=== PATIENT | female | born 1990 | race Caucasian/White ===

== ENCOUNTER 2019-12-21 06:04 | Inpatient (IN) | payer OTHER ==
[2019-12-21] MEDS ORDERED: Calcium Carbonate 500 MG Tab.Chew PO PRN (12:16)
[2019-12-21] MEDS ORDERED: Ondansetron 4 MG/2 ML SDV IVPUSH PRN (12:16)
[2019-12-21] MEDS ORDERED: Nalbuphine 10 MG/ML Syringe IVPUSH PRN (12:16)
[2019-12-21] MEDS ORDERED: Sodium Chloride 0.9% 10 ML Syringe FLUSH PRN (12:16)
[2019-12-21] MEDS ORDERED: Oxytocin/Lactated Ringers 10 UNIT/1,000 ML BAG IV SCH (12:30)
[2019-12-21] MEDS: Oxytocin/Lactated Ringers 10 UNIT/1,000 ML BAG IV SCH (12:44)
[2019-12-21] MEDS: Lactated Ringers 1,000 ML IV SCH (12:44)
[2019-12-21] MEDS ORDERED: Measles, Mumps & Rubella Vaccine 0.5 ML SDV SUBCUT ONE (14:21)
[2019-12-21] MEDS ORDERED: fentaNYL 100 MCG/2 ML SDV EPIDUR PRN (15:29)
[2019-12-21] MEDS ORDERED: ePHEDrine 50 MG/ML SDV IVPUSH PRN (15:29)
[2019-12-21] MEDS ORDERED: diphenhydrAMINE 50 MG/ML SDV IVPUSH PRN (15:29)
--- NOTE | 2019-12-21 18:09 | PCM.LDHP ---
L&D History of Present Illness - General Date of Service: 12/21/19 Admit Problem/Dx: Admission Diagnosis/Problem Admission Diagnosis/Problem 12/21/19 17:58 Jessika is a 29-year-old 3 para 1-0-1-1 white female who was admitted for elective induction of labor at 39 and 0/7 weeks gestational age with an JORGITO of 12/28/2019. Source of Information: Patient History Limitations: Reports: No Limitations - History of Present Illness Introduction:: Jessika is a 29-year-old 3 para 1-0-1-1 white female who was admitted for elective induction of labor at 39 and 0/7 weeks gestational age with an JORGITO of 12/28/2019. She has previously a low uterine segment transverse section done for failure to progress. The procedure of trial of labor after section for an attempt at vaginal after section was discussed in detail on at least 3 occasions during the course of the . The procedure, risks, benefits, limitations and inability to guarantee a vaginal area all discussed. Also discussed our preparations that are recommended while in labor in case emergent repeat section would be indicated. She appears understand, wishes to proceed and has signed a consent. [employer] history: 3 para 1-0-1-1. JORGITO is 12/28/2019 as based upon a certain last menstrual period started 03/23/2019 and supported by an ultrasound done at 21 weeks and 0 days. Patient's previous obstetric history includes a menarche at approximately age 12. Cycles monthly. No control at the time of conception. Previous emeses include the followin. Miscarriagefirst trimester01/09/2017 2. Primary section for failure to progress secondary to cephalopelvic disproportion 02/17/2018 at 41 weeks gestational age. Had spinal anesthesia at that time. Delivery was in [place], [place]. course: Patient was initially seen in the 09/21/2019 when she transferred her care because of desire to attempt a trial of labor after section for . And on a regular basis since that time. Her weight gain was from a pregravid weight of 144.6 pounds to a final weight of 171 pounds at her last visit on 12/14/2019. Her fundal height growth is appropriate. Ultrasound performed on 08/17/2019 at 21-0/7 weeks shows normal growth. Cervix was 4 cm long and recommendation was for to be kept at 12/28/2019 by certain last menstrual period. Patient is group B strep negative. T dap was done in [place], [place] on 10/19/2019. She desires an epidural. She plans to breast-feed. Her previous health care and [place], [place]. Hepatitis B panel vaccinations were done in 2002. Meningococcal immunization was done in 2006. Laboratory testing in shows her blood to be a be positive. Antibody screen is negative. First hemoglobin was 12.8 g/dL. Platelets were 337,000. Pap smear on 06/16/2019 was negative. HPV titer was negative. Rubella and RPR's were both nonreactive. Hepatitis B surface antigen and HIV assays were both negative. Chlamydia and gonorrhea tests were both negative. TSH was normal at 2.257 milliunits/mL. Second trimester labs showed a hemoglobin of 11.5 g/dL. Patient was advised to get on extra iron at that time. Platelet count 274,000. 1 hour glucose test was normal at 109 mg/dL. Repeat RPR 09/21/2019 was nonreactive. Group B strep screen was negative. Allergies: Penicillin which causes a rash Medications: vitamins 1 daily Past medical history: Miscarriage x1, first trimester, 2017 Past surgical history: 1. Tonsillectomy 2. section Family history: Mother is alive and well. Father is alive and well. Brother is alive and well. Maternal grandmother is alive but with thyroid dysfunction on replacement meds. Maternal grandfather is alive but with history of high cholesterol. Paternal grandmother is secondary to a cerebellum GM degenerating disorder. Paternal grandfather is secondary to diabetes and other health issues. No known family history of cancer, bleeding or clotting disorders, anesthesia related issues or related concerns. Social history: Patient is . She and her Jaki lives in [place], [place]. 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 She does not use any significant alcohol, drugs or tobacco. Review of systems: In general patient has no complaints. Skin: Negative Lungs: No infectious symptoms or shortness of breath Cardiovascular: No chest pain or exercise intolerance Breasts: No lumps, changes in size, pain, dimpling, discharge or axillary or supraclavicular concerns. GI: Negative : Changes associated with . Musculoskeletal: Negative Neurological: Negative Physical exam: In general the patient is well-developed, well-nourished, pleasant female of stated age in no acute distress. Skin is warm dry without lesions. HEENT, neck and back within normal limits. Lungs are clear with good breath sounds in all lung styles. Cardiovascular exam shows regular and rhythm without murmurs. Abdomen is f gravid with fundal height of 38 cm on last evaluation clinic on 12/14/2019. Baby in a vertex presentation. Genital per them shows cervix to be 2 cm, 50% effaced, soft, posterior, -3 station, vertex presentation. Extremities and neurological exam are grossly within normal limits. - Related Data Allergies/Adverse Reactions: Allergies Allergy/AdvReac Type Severity Reaction Status Date / Time Penicillins Allergy Severe Hives Verified 12/21/19 12:02 Past Medical History - Past Health History Medical/Surgical History: Denies Medical/Surgical History Social & Family History - Family History Family Medical History: Noncontributory - Tobacco Use Smoking Status *Q: Never Smoker Second Hand Smoke Exposure: No - Caffeine Use Caffeine Use: Reports: None - Recreational Drug Use Recreational Drug Use: No H&P Review of Systems - Review of Systems: Review Of Systems: See Below L&D Exam - Exam Exam: See Below - Vital Signs Weight: 77.564 kg - Patient Data Lab Results Last 24 hrs: Laboratory Results - last 24 hr 12/21/19 12/21/19 12/21/19 Range/Units 12:14 12:45 12:45 WBC 7.44 (3.98-10.04) K/mm3 RBC 4.11 (3.98-5.22) M/mm3 Hgb 11.8 (11.2-15.7) gm/dl Hct 36.2 (34.1-44.9) % MCV 88.1 (79.4-94.8) fl MCH 28.7 (25.6-32.2) pg MCHC 32.6 (32.2-35.5) g/dl RDW Std Deviation 44.2 (36.4-46.3) fL Plt Count 233 (182-369) K/mm3 MPV 10.8 (9.4-12.3) fl Neut % (Auto) 60.4 (34.0-71.1) % Lymph % (Auto) 29.2 (19.3-51.7) % [place] % (Auto) 8.6 (4.7-12.5) % Eos % (Auto) 1.3 (0.7-5.8) Baso % (Auto) 0.4 (0.1-1.2) % Neut # (Auto) 4.49 (1.56-6.13) K/mm3 Lymph # (Auto) 2.17 (1.18-3.74) K/mm3 [place] # (Auto) 0.64 H (0.24-0.36) K/mm3 Eos # (Auto) 0.10 (0.04-0.36) K/mm3 Baso # (Auto) 0.03 (0.01-0.08) K/mm3 COVID-19 (PAUL) Negative (NEGATIVE) Blood Type AB POSITIVE Gel Antibody Screen Negative Result Diagrams: 12/21/19 12:45 Problem List Initiated/Reviewed/Updated: Yes Orders Last 24hrs: Active Orders 24 hr Category Date Time Status Activity as Tolerated [RC] PFP Care 12/21/19 12:16 Active Communication Order [RC] ASDIRECTED Care 12/21/19 12:16 Active Heart Tones [RC] ASDIRECTED Care 12/21/19 12:16 Active Notify Provider [RC] ASDIRECTED Care 12/21/19 15:29 Active Notify Provider [RC] PFP Care 12/21/19 12:16 Active Notify Provider [RC] PRN Care 12/21/19 12:16 Active Peripheral IV Care [RC] . DIRECTED Care 12/21/19 12:16 Active Vaccines to be Administered [RC] PER UNIT ROUTINE Care 12/21/19 14:21 Active Vital Signs [RC] PER UNIT ROUTINE Care 12/21/19 12:16 Active Regular Diet [DIET] Diet 12/22/19 Lunch Active PATIENT RETYPE [BBK] Routine Lab 12/21/19 15:07 Ordered RAPID PLASMA REAGIN,RPR [CHEM] Routine Lab 12/21/19 12:45 Received Bupivacaine/fentaNYL/NS [fentaNYL/Bupivacaine/NS 2 MCG- Med 12/21/19 15:29 Active 0.125% 100 ML] 100 ml EPIDUR ASDIRECTED PRN Calcium Carbonate [Tums] Med 12/21/19 12:16 Active 1,000 mg PO Q2H PRN Lactated Ringers [Ringers, Lactated] 1,000 ml Med 12/21/19 12:30 Active IV ASDIRECTED Nalbuphine [Nubain] Med 12/21/19 12:16 Active 10 mg IVPUSH Q2H PRN Ondansetron [Zofran] Med 12/21/19 12:16 Active 4 mg IVPUSH Q4H PRN Oxytocin/Lactated Ringers [Pitocin in LR 10 Units/1,000 Med 12/21/19 12:30 Active ML] 10 unit in 1,000 ml IV .CONTINUOUS Oxytocin/Lactated Ringers [Pitocin in LR 10 Units/1,000 Med 12/21/19 12:30 Active ML] 10 unit in 1,000 ml IV TITRATE Sodium Chloride 0.9% [Saline Flush] Med 12/21/19 12:16 Active 10 ml FLUSH ASDIRECTED PRN diphenhydrAMINE [Benadryl] Med 12/21/19 15:29 Active 25 mg IVPUSH Q6H PRN ePHEDrine [ePHEDrine sulfate] Med 12/21/19 15:29 Active 5 mg IVPUSH ASDIRECTED PRN fentaNYL [Sublimaze] Med 12/21/19 15:29 Active 100 mcg EPIDUR Q3H PRN Electronic Heart Tones Ext w TOCO [WOMSER] Oth 12/21/19 12:16 Ordered Routine Electronic Heart Tones Internal [WOMSER] Per Unit Oth 12/21/19 12:16 Ordered Routine Peripheral IV Insertion Adult [OM.PC] Routine Oth 12/21/19 12:16 Ordered Resuscitation Status Routine Resus Stat 12/21/19 12:16 Ordered Medication Orders Calcium Carbonate/Glycine (Tums) 1,000 mg PO Q2H PRN PRN Reason: Indigestion Diphenhydramine HCl (Benadryl) 25 mg IVPUSH Q6H PRN PRN Reason: pruritis Ephedrine Sulfate (Ephedrine Sulfate) 5 mg IVPUSH ASDIRECTED PRN PRN Reason: Hypotension Fentanyl (Sublimaze) 100 mcg EPIDUR Q3H PRN PRN Reason: Pain Fentanyl/Bupivacaine HCl (Fentanyl/Bupivacaine/Ns 2 Mcg-0.125% 100 Ml) 100 ml EPIDUR ASDIRECTED PRN PRN Reason: Pain Lactated Ringer's (Ringers, Lactated) 1,000 mls @ 100 mls/hr IV ASDIRECTED JANINE Last Admin: 12/21/19 12:44 Dose: 100 mls/hr Documented by: WALTER Oxytocin/Lactated Ringer's (Pitocin In Lr 10 Units/1,000 Ml) 10 unit in 1,000 mls @ 12 mls/hr IV TITRATE JANINE; Protocol Last Titration: 12/21/19 16:59 Dose: 14 munits/min, 84 mls/hr Documented by: Titration: 12/21/19 16:30 Dose: 12 munits/min, 72 mls/hr Documented by: Titration: 12/21/19 16:00 Dose: 10 munits/min, 60 mls/hr Documented by: Titration: 12/21/19 15:30 Dose: 8 munits/min, 48 mls/hr Documented by: Titration: 12/21/19 14:31 Dose: 6 munits/min, 36 mls/hr Documented by: Titration: 12/21/19 13:48 Dose: 4 munits/min, 24 mls/hr Documented by: Admin: 12/21/19 12:44 Dose: 2 munits/min, 12 mls/hr Documented by: RUMMVIR Oxytocin/Lactated Ringer's (Pitocin In Lr 10 Units/1,000 Ml) 10 unit in 1,000 mls @ 500 mls/hr IV .CONTINUOUS JANINE Nalbuphine HCl (Nubain) 10 mg IVPUSH Q2H PRN PRN Reason: Pain Ondansetron HCl (Zofran) 4 mg IVPUSH Q4H PRN PRN Reason: Nausea/Vomiting Sodium Chloride (Saline Flush) 10 ml FLUSH ASDIRECTED PRN PRN Reason: Keep Vein Open Assessment/Plan Comment:: 1. 39-0/7-week intrauterine with patient admitted for elective induction of labor 2. History of previous section done for failure to progress secondary to cephalopelvic disproportion. Patient is understanding that this history may decrease the likelihood of her having a successful vaginal after section. She has had the risks, benefits, precautionary measures all discussed with her. She wishes to proceed and has signed a consent. She is understanding that the baby may have to be delivered by section if any problems arise or the baby is not able to be delivered other factors. 3. Patient plans to breast-feed. 4. Group B strep screen is negative. 5. Risk factors for the include history of previous section, history of miscarriage. 6. Patient desires epidural in labor and delivery. Breast-feeding decision. 7. Patient has G to penicillin which causes a rash. 8. Titer shows immunity. Tdap was given on 10/19/2019. Plan: 1. Pitocin induction of labor with artificial rupture membranes augmentation at the appropriate time. Procedure, risk, benefits, limitations, follow-up, alternatives of care including a repeat section were all discussed in detail with patient on several occasions. She appears understanding, wishes to proceed and has signed consent. 2. Precautionary preparations to be taken because of her history of section include the following: [id number] labs, IV access, near continuous heart rate monitoring, evaluation during labor, informing anesthesia and surgery that A vaginal after section candidate is in labor. 3. Anticipate normal spontaneous vaginal delivery. Patient is aware of the reasonable expectation that she may have a section if she fails to progress. 4. Routine labor care. 5. Support breast-feeding decision 6. Epidural as needed per patient desire.
--- NOTE | 2019-12-21 20:55 | PCM.PREANE ---
Preanesthetic Assessment - Procedure Proposed Procedure: Epidural - Anesthesia/Transfusion/Family Hx Anesthesia History: Prior Anesthesia Without Reaction Transfusion History: No Prior Transfusion(s) - Review of Systems General: No Symptoms Pulmonary: No Symptoms Cardiovascular: No Symptoms Gastrointestinal: No Symptoms Neurological: No Symptoms Other: Reports: None - Physical Assessment Height: 1.68 m Weight: 77.564 kg ASA Class: 2 Mental Status: Alert & Oriented x3 Airway Class: Mallampati = 1 Dentition: Reports: Normal Dentition Thyro-Mental Finger Breadths: 3 Mouth Opening Finger Breadths: 3 ROM/Head Extension: Full Lungs: Clear to Auscultation, Normal Respiratory Effort Cardiovascular: Regular Rate, Regular Rhythm - Lab Values: Laboratory Last Values WBC 7.44 K/mm3 (3.98-10.04) 12/21/19 12:45 RBC 4.11 M/mm3 (3.98-5.22) 12/21/19 12:45 Hgb 11.8 gm/dl (11.2-15.7) 12/21/19 12:45 Hct 36.2 % (34.1-44.9) 12/21/19 12:45 MCV 88.1 fl (79.4-94.8) 12/21/19 12:45 MCH 28.7 pg (25.6-32.2) 12/21/19 12:45 MCHC 32.6 g/dl (32.2-35.5) 12/21/19 12:45 RDW Std Deviation 44.2 fL (36.4-46.3) 12/21/19 12:45 Plt Count 233 K/mm3 (182-369) 12/21/19 12:45 MPV 10.8 fl (9.4-12.3) 12/21/19 12:45 Neut % (Auto) 60.4 % (34.0-71.1) 12/21/19 12:45 Lymph % (Auto) 29.2 % (19.3-51.7) 12/21/19 12:45 [place] % (Auto) 8.6 % (4.7-12.5) 12/21/19 12:45 Eos % (Auto) 1.3 (0.7-5.8) 12/21/19 12:45 Baso % (Auto) 0.4 % (0.1-1.2) 12/21/19 12:45 Neut # (Auto) 4.49 K/mm3 (1.56-6.13) 12/21/19 12:45 Lymph # (Auto) 2.17 K/mm3 (1.18-3.74) 12/21/19 12:45 [place] # (Auto) 0.64 K/mm3 (0.24-0.36) H 12/21/19 12:45 Eos # (Auto) 0.10 K/mm3 (0.04-0.36) 12/21/19 12:45 Baso # (Auto) 0.03 K/mm3 (0.01-0.08) 12/21/19 12:45 COVID-19 (PAUL) Negative (NEGATIVE) 12/21/19 12:14 Blood Type AB POSITIVE 12/21/19 12:45 Gel Antibody Screen Negative 12/21/19 12:45 - Allergies Allergies/Adverse Reactions: Allergies Allergy/AdvReac Type Severity Reaction Status Date / Time Penicillins Allergy Severe Hives Verified 12/21/19 12:02 - Acknowledgements Anesthesia Type Planned: Epidural Pt an Appropriate Candidate for the Planned Anesthesia: Yes Alternatives and Risks of Anesthesia Discussed w Pt/Guardian: Yes Pt/Guardian Understands and Agrees with Anesthesia Plan: Yes PreAnesthesia Questionnaire - Past Health History Medical/Surgical History: Denies Medical/Surgical History - SUBSTANCE USE Smoking Status *Q: Never Smoker Second Hand Smoke Exposure: No Recreational Drug Use History: No - CURRENT (IN HOUSE) MEDS Current Meds: Current Medications Calcium Carbonate/Glycine (Tums) 1,000 mg PO Q2H PRN PRN Reason: Indigestion Diphenhydramine HCl (Benadryl) 25 mg IVPUSH Q6H PRN PRN Reason: pruritis Ephedrine Sulfate (Ephedrine Sulfate) 5 mg IVPUSH ASDIRECTED PRN PRN Reason: Hypotension Fentanyl (Sublimaze) 100 mcg EPIDUR Q3H PRN PRN Reason: Pain Fentanyl/Bupivacaine HCl (Fentanyl/Bupivacaine/Ns 2 Mcg-0.125% 100 Ml) 100 ml EPIDUR ASDIRECTED PRN PRN Reason: Pain Lactated Ringer's (Ringers, Lactated) 1,000 mls @ 100 mls/hr IV ASDIRECTED JANINE Last Admin: 08/12/20 12:44 Dose: 100 mls/hr Documented by: Oxytocin/Lactated Ringer's (Pitocin In Lr 10 Units/1,000 Ml) 10 unit in 1,000 mls @ 12 mls/hr IV TITRATE JANINE; Protocol Last Titration: 12/21/19 16:59 Dose: 14 munits/min, 84 mls/hr Documented by: Oxytocin/Lactated Ringer's (Pitocin In Lr 10 Units/1,000 Ml) 10 unit in 1,000 mls @ 500 mls/hr IV .CONTINUOUS JANINE Nalbuphine HCl (Nubain) 10 mg IVPUSH Q2H PRN PRN Reason: Pain Ondansetron HCl (Zofran) 4 mg IVPUSH Q4H PRN PRN Reason: Nausea/Vomiting Sodium Chloride (Saline Flush) 10 ml FLUSH ASDIRECTED PRN PRN Reason: Keep Vein Open Discontinued Medications Measles/Mumps/Rubella Vaccine Live (M-M-R Ii Vaccine) 0.5 ml SUBCUT .ONCE ONE Stop: 12/21/19 14:22
[2019-12-21] MEDS: Bupivacaine/fentaNYL/NS 100 ML Bag EPIDUR PRN (21:44)
[2019-12-22] MEDS ORDERED: Lidocaine 1.5% with EPINEPHrine 1:200,000 5 ML Amp ONE
[2019-12-22] MEDS: Oxytocin/Lactated Ringers 10 UNIT/1,000 ML BAG IV SCH (03:16)
[2019-12-22] MEDS: Lactated Ringers 1,000 ML IV SCH (03:17)
[2019-12-22] MEDS: Bupivacaine/fentaNYL/NS 100 ML Bag EPIDUR PRN (03:59)
--- NOTE | 2019-12-22 06:50 | PCM.SN.2 ---
- Free Text/Narrative Note: Jessika is a 29-year-old 3 para 1-0-1-1 white female who was admitted for elective induction of labor at 39 and 1/7 weeks gestational age with an JORGITO of 12/28/2019. She has previously a low uterine segment transverse section done for failure to progress. The procedure of trial of labor after section for an attempt at vaginal after section was discussed in detail on at least 3 occasions during the course of the . The procedure, risks, benefits, limitations and inability to guarantee a vaginal area all discussed. Also discussed our preparations that are recommended while in labor in case emergent repeat section would be indicated. She appears understand, wished to proceed and signed a consent. Patient initially was started on Pitocin and after several hours of induction underwent artificial rupture membranes with resultant clear amniotic fluid. She underwent labor analgesia with epidural eventually. She progressed rapidly from 3 to 4 cm up to complete and at approximately 0030 hours on 12/22/2019 complete. At 0604 hrs. patient delivered a viable, acuña, male with a weight of 3150 g (6 pounds 15.1 ounces), Apgars of 8 and 9 and a length of 20.0 inches. Baby delivered in a direct occiput anterior position. Patient had a second- degree laceration with bilateral labial lacerations that were superficial in nature. Baby was placed on mom's abdomen, dried and nose and mouth was bulb suctioned. Pitocin was increased to 500 cc/h to facilitate increase in uterine tone and decrease likelihood of bleeding. Cord was allowed to pulsate for approximately 2 to 3 minutes and was then clamped x2 and cut by the baby's father Jaki. Was obtained. The umbilical cord had 3 vessels present within it. Repair of the labial lacerations was then undertaken with interrupted and short running sutures of 3-0 Monocryl. Perineal laceration was repaired in a routine fashion. Labor epidural analgesia was used for perineal laceration repair anesthesia. Patient tolerated this very well. The placenta delivered in a Barrow presentation, appeared intact and complete and was discarded per patient desire. Blood loss was 200 cc. Patient plans to breast-feed.
[2019-12-22] MEDS ORDERED: Witch Hazel Medicated Pads 40/Jar TOP PRN (07:15)
[2019-12-22] MEDS ORDERED: Benzocaine/Menthol 20%-0.5% Spray 56 GM Canister TOP PRN (07:15)
[2019-12-22] MEDS ORDERED: Acetaminophen 325 MG Tab PO PRN (07:15)
[2019-12-22] MEDS: Ibuprofen 600 MG Tab PO PRN ×3 (08:29→20:30)
[2019-12-22] MEDS: Prenatal Multivitamin with Calcium/Folic Acid/Iron Tab PO SCH (08:30)
[2019-12-22] MEDS: Docusate Sodium 100 MG Cap PO PRN (20:30)
[2019-12-23] MEDS: Ibuprofen 600 MG Tab PO PRN ×2 (02:00→08:20)
--- NOTE | 2019-12-23 07:52 | PCM48HPAN ---
Post Anesthesia Note - EVALUATION WITHIN 48HRS OF ANESTHETIC Vital Signs in Normal Range: Yes Patient Participated in Evaluation: Yes Respiratory Function Stable: Yes Airway Patent: Yes Cardiovascular Function Stable: Yes Hydration Status Stable: Yes Pain Control Satisfactory: Yes Nausea and Vomiting Control Satisfactory: Yes Mental Status Recovered: Yes Vital Signs: Last Vital Signs Temp 36.3 C 12/23/19 03:54 Pulse 75 12/23/19 02:04 Resp 15 12/23/19 02:04 BP 122/84 12/23/19 02:04 Pulse Ox 98 12/23/19 02:04
[2019-12-23] MEDS: Prenatal Multivitamin with Calcium/Folic Acid/Iron Tab PO SCH (08:21)
[2019-12-23] MEDS: Docusate Sodium 100 MG Cap PO PRN (08:21)
--- NOTE | 2019-12-23 09:55 | PCM.DCSUM1 ---
<NisaChristina R - Last Filed: 12/23/19 09:56> Discharge Summary - Hospital Course Free Text/Narrative:: Jessika is a 29-year-old 3 para 1-0-1-1 white female who was admitted for elective induction of labor at 39 and 1/7 weeks gestational age with an JORGITO of 12/28/2019. She has previously a low uterine segment transverse section done for failure to progress. The procedure of trial of labor after section for an attempt at vaginal after section was discussed in detail on at least 3 occasions during the course of the . The procedure, risks, benefits, limitations and inability to guarantee a vaginal area all discussed. Also discussed our preparations that are recommended while in labor in case emergent repeat section would be indicated. She appears understand, wished to proceed and signed a consent. Patient initially was started on Pitocin and after several hours of induction underwent artificial rupture membranes with resultant clear amniotic fluid. She underwent labor analgesia with epidural eventually. She progressed rapidly from 3 to 4 cm up to complete and at approximately 0030 hours on 12/22/2019 complete. At 0604 hrs. patient delivered a viable, acuña, male with a weight of 3150 g (6 pounds 15.1 ounces), Apgars of 8 and 9 and a length of 20.0 inches. Baby delivered in a direct occiput anterior position. Patient had a second- degree laceration with bilateral labial lacerations that were superficial in nature. Baby was placed on mom's abdomen, dried and nose and mouth was bulb suctioned. Pitocin was increased to 500 cc/h to facilitate increase in uterine tone and decrease likelihood of bleeding. Cord was allowed to pulsate for approximately 2 to 3 minutes and was then clamped x2 and cut by the baby's father Jaki. Cord blood was obtained. The umbilical cord had 3 vessels present within it. Repair of the labial lacerations was then undertaken with interrupted and short running sutures of 3-0 Monocryl. Perineal laceration was repaired in a routine fashion. Labor epidural analgesia was used for perineal laceration repair anesthesia. Patient tolerated this very well. The placenta delivered in a Barrow presentation, appeared intact and complete and was discarded per patient desire. Blood loss was 200 cc. Patient has done just fine. She is ambulating well, has minimal lochia, is nursing without problems and is voiding without concerns. Patient is desiring discharge home. Condition: Good Diagnosis: Stroke: No Modified Hessmer Scale: No Symptoms at All Modified Hessmer Scale Score: 0 - Discharge Data Discharge Date: 12/23/19 Discharge Disposition: Home, Self-Care 01 Condition: Good - Referral to Home Health Primary Care Physician: Ben Blair MD - Patient Instructions Diet: Regular Diet as Tolerated Activity: As Tolerated (pelvic rest until discharge is gone and stitches have healed) Driving: May Drive Today Showering/Bathing: May Shower Notify Provider of: Fever, Increased Pain, Swelling and Redness - Discharge Plan Patient Handouts: Mastitis, [id number], Breast Engorgement, Care After Vaginal Delivery Referrals: Ben Blair MD [Primary Care Provider] - - Discharge Summary/Plan Comment Discharge Summary/Plan Comment: Discharge instructions: 1. Discharge home 2. Diet, activity and follow-up discussed with patient. Recommend nursing diet with increased calories and calcium. 3. Precautions given concern increased pain, bleeding, temperature, signs/symptoms of DVT/PE. 4. Medications per home medication was printed, discussed with and given to the patient. 5. Return to clinic in [address] Blair Diagnosis: Term -delivered, vaginal after Condition: Good - Patient Data Vitals - Most Recent: Last Vital Signs Temp 98.2 F 12/23/19 08:24 Pulse 101 H 12/23/19 08:24 Resp 15 12/23/19 02:04 BP 109/74 12/23/19 08:24 Pulse Ox 100 12/23/19 08:24 Weight - Most Recent: 77.564 kg I&O - Last 24 hours: Intake & Output 12/22/19 12/23/19 12/23/19 22:59 06:59 14:59 Intake Total 560 Balance 560 Med Orders - Current: Current Medications Acetaminophen (Tylenol) 650 mg PO Q4H PRN PRN Reason: mild pain or fever Benzocaine/Menthol (Dermoplast Pain Relief [place]) 0 gm TOP ASDIRECTED PRN PRN Reason: Perineal Comfort Measure Last Admin: 12/22/19 08:30 Dose: 1 spray Documented by: Docusate Sodium (Colace) 100 mg PO BID PRN PRN Reason: Constipation Last Admin: 12/23/19 08:21 Dose: 100 mg Documented by: Ibuprofen (Motrin) 600 mg PO Q4H PRN PRN Reason: Mild pain or fever Last Admin: 12/23/19 08:20 Dose: 600 mg Documented by: Prenjimmy Multivit/[place]/Iron/Folic Ac ( Plus Iron) 1 each PO DAILY JANINE Last Admin: 12/23/19 08:21 Dose: 1 each Documented by: Leonila Taylor (Luis Felipe) 1 pad TOP ASDIRECTED PRN PRN Reason: Perineal Comfort Measure Last Admin: 12/22/19 08:30 Dose: 1 pad Documented by: Discontinued Medications Calcium Carbonate/Glycine (Tums) 1,000 mg PO Q2H PRN PRN Reason: Indigestion Diphenhydramine HCl (Benadryl) 25 mg IVPUSH Q6H PRN PRN Reason: pruritis Ephedrine Sulfate (Ephedrine Sulfate) 5 mg IVPUSH ASDIRECTED PRN PRN Reason: Hypotension Fentanyl (Sublimaze) 100 mcg EPIDUR Q3H PRN PRN Reason: Pain Last Admin: 12/21/19 21:44 Dose: 100 mcg Documented by: Fentanyl/Bupivacaine HCl (Fentanyl/Bupivacaine/Ns 2 Mcg-0.125% 100 Ml) 100 ml EPIDUR ASDIRECTED PRN PRN Reason: Pain Last Admin: 12/22/19 03:59 Dose: 100 ml Documented by: Lactated Ringer's (Ringers, Lactated) 1,000 mls @ 100 mls/hr IV ASDIRECTED JANINE Last Admin: 12/22/19 03:17 Dose: 100 mls/hr Documented by: Oxytocin/Lactated Ringer's (Pitocin In Lr 10 Units/1,000 Ml) 10 unit in 1,000 mls @ 12 mls/hr IV TITRATE JANINE; Protocol Last Titration: 12/22/19 06:04 Dose: 166.5 munits/min, 999 mls/hr Documented by: Oxytocin/Lactated Ringer's (Pitocin In Lr 10 Units/1,000 Ml) 10 unit in 1,000 mls @ 500 mls/hr IV .CONTINUOUS JANINE Lidocaine/Epinephrine (Xylocaine-Mpf 1.5% W/Epinephrine 1:200,000) 5 ml .ROUTE [facility] ONE Stop: 08/13/20 00:01 Measles/Mumps/Rubella Vaccine Live (M-M-R Ii Vaccine) 0.5 ml SUBCUT .ONCE ONE Stop: 12/21/19 14:22 Last Admin: 12/22/19 15:23 Dose: 0.5 ml Documented by: Nalbuphine HCl (Nubain) 10 mg IVPUSH Q2H PRN PRN Reason: Pain Ondansetron HCl (Zofran) 4 mg IVPUSH Q4H PRN PRN Reason: Nausea/Vomiting Sodium Chloride (Saline Flush) 10 ml FLUSH ASDIRECTED PRN PRN Reason: Keep Vein Open <Ben Blair - Last Filed: 12/23/19 10:36> Discharge Summary - Hospital Course Free Text/Narrative:: G 3 P2012 Diagnosis: Stroke: No - Referral to Home Health Primary Care Physician: Ben Blair MD - Discharge Summary/Plan Comment DC Time >30 min.: No - Patient Data Vitals - Most Recent: Last Vital Signs Temp 36.8 C 12/23/19 08:24 Pulse 101 H 12/23/19 08:24 Resp 15 12/23/19 02:04 BP 109/74 12/23/19 08:24 Pulse Ox 100 12/23/19 08:24 I&O - Last 24 hours: Intake & Output 12/22/19 12/23/19 12/23/19 22:59 06:59 14:59 Intake Total 560 Balance 560 Med Orders - Current: Current Medications Acetaminophen (Tylenol) 650 mg PO Q4H PRN PRN Reason: mild pain or fever Benzocaine/Menthol (Dermoplast Pain Relief [place]) 0 gm TOP ASDIRECTED PRN PRN Reason: Perineal Comfort Measure Last Admin: 12/22/19 08:30 Dose: 1 spray Documented by: Docusate Sodium (Colace) 100 mg PO BID PRN PRN Reason: Constipation Last Admin: 12/23/19 08:21 Dose: 100 mg Documented by: Ibuprofen (Motrin) 600 mg PO Q4H PRN PRN Reason: Mild pain or fever Last Admin: 12/23/19 08:20 Dose: 600 mg Documented by: Prenat Multivit/Photogram[employer] Engineer/Iron/Folic Ac ( Plus Iron) 1 each PO DAILY JANINE Last Admin: 12/23/19 08:21 Dose: 1 each [facility]ed [facility]: [facility] TOP ASDIRECTED PRN PRN Reason: Perineal Comfort Measure Last Admin: 12/22/19 08:30 Dose: 1 pad Documented by: Discontinued Medications Calcium Carbonate/Glycine (Tums) 1,000 mg PO Q2H PRN PRN Reason: Indigestion Diphenhydramine HCl (Benadryl) 25 mg IVPUSH Q6H PRN PRN Reason: pruritis Ephedrine Sulfate (Ephedrine Sulfate) 5 mg IVPUSH ASDIRECTED PRN PRN Reason: Hypotension Fentanyl (Sublimaze) 100 mcg EPIDUR Q3H PRN PRN Reason: Pain Last Admin: 12/21/19 21:44 Dose: 100 mcg Documented by: Fentanyl/Bupivacaine HCl (Fentanyl/Bupivacaine/Ns 2 Mcg-0.125% 100 Ml) 100 ml EPIDUR ASDIRECTED PRN PRN Reason: Pain Last Admin: 12/22/19 03:59 Dose: 100 ml Documented by: Lactated Ringer's (Ringers, Lactated) 1,000 mls @ 100 mls/hr IV ASDIRECTED JANINE Last Admin: 12/22/19 03:17 Dose: 100 mls/hr Documented by: Oxytocin/Lactated Ringer's (Pitocin In Lr 10 Units/1,000 Ml) 10 unit in 1,000 mls @ 12 mls/hr IV TITRATE JANINE; Protocol Last Titration: 12/22/19 06:04 Dose: 166.5 munits/min, 999 mls/hr Documented by: Oxytocin/Lactated Ringer's (Pitocin In Lr 10 Units/1,000 Ml) 10 unit in 1,000 mls @ 500 mls/hr IV .CONTINUOUS JANINE Lidocaine/Epinephrine (Xylocaine-Mpf 1.5% W/Epinephrine 1:200,000) 5 ml .ROUTE .[facility]-MED ONE Stop: 12/22/19 00:01 Measles/Mumps/Rubella Vaccine Live (M-M-R Ii Vaccine) 0.5 ml SUBCUT .ONCE ONE Stop: 12/21/19 14:22 Last Admin: 12/22/19 15:23 Dose: 0.5 ml Documented by: Nalbuphine HCl (Nubain) 10 mg IVPUSH Q2H PRN PRN Reason: Pain Ondansetron HCl (Zofran) 4 mg IVPUSH Q4H PRN PRN Reason: Nausea/Vomiting Sodium Chloride (Saline Flush) 10 ml FLUSH ASDIRECTED PRN PRN Reason: Keep Vein Open
== END 2019-12-23 16:00 | disposition home or self-care (01) | DRG 807 ==
LOC: JD.OB 06:04 → OBSVTOIN 12-22 06:04 → JD.OB 12-22 06:20
PROVIDERS: ADMIT Obstetrics & Gynecology; ATTEND Obstetrics & Gynecology
PROC: 10E0XZZ Delivery of Products of Conception, External Approach (ICD-10-PCS; principal; 2019-12-22)
PROC: 0KQM0ZZ Repair Perineum Muscle, Open Approach (ICD-10-PCS; 2019-12-22)
PROC: 0KQM0ZZ Repair Perineum Muscle, Open Approach (ICD-10-PCS; 2019-12-22)
PROC: 10907ZC Drainage of Amniotic Fluid, Therapeutic from Products of Conception, Via Natural or Artificial Opening (ICD-10-PCS; 2019-12-22)
PROC: 3E033VJ Introduction of Other Hormone into Peripheral Vein, Percutaneous Approach (ICD-10-PCS; 2019-12-22)
PROC: 0UQMXZZ Repair Vulva, External Approach (ICD-10-PCS; 2019-12-22)
DX: O34.211 Maternal care for low transverse scar from previous cesarean delivery (principal); Z37.0 Single live birth; Z3A.39 39 weeks gestation of pregnancy; O70.1 Second degree perineal laceration during delivery; O70.0 First degree perineal laceration during delivery; Z11.59 Encounter for screening for other viral diseases
CPT/HCPCS: 36415; 51701; 51702; 59025; 59409; 85025; 86592; 86850; 86900; 86901; 90707; A9270-GY; J2590; J3010; J7120; U0002

== ENCOUNTER 2021-07-03 14:15 | Observation (INO) | payer OTHER ==
[2021-07-03] MEDS ORDERED: Acetaminophen 325 MG Tab PO PRN (14:47)
[2021-07-03] MEDS ORDERED: Nalbuphine 10 MG/1 ML Vial IVPUSH PRN (14:47)
[2021-07-03] MEDS ORDERED: Sodium Chloride 0.9% 10 ML Syringe FLUSH PRN (14:47)
[2021-07-03] MEDS ORDERED: Misoprostol 200 MCG Tab VAG ONE (14:51)
[2021-07-03] MEDS: Misoprostol 200 MCG Tab VAG PRN ×3 (18:17→22:33)
[2021-07-03] MEDS: Sodium Chloride 0.9% 10 ML Syringe FLUSH SCH (22:54)
[2021-07-03] MEDS ORDERED: HYDROmorphone 0.5 MG/0.5 ML Syringe IVPUSH PRN (23:35)
[2021-07-03] MEDS ORDERED: HYDROmorphone 1 MG/ML Syringe IVPUSH PRN (23:38)
[2021-07-04] MEDS ORDERED: Bupivacaine 0.25% 10 ML SDV ONE (01:00)
[2021-07-04] MEDS: Misoprostol 200 MCG Tab VAG PRN ×2 (01:34→04:36)
[2021-07-04] MEDS: Lactated Ringers 1,000 ML IV SCH ×2 (07:04→08:04)
[2021-07-04] MEDS ORDERED: ePHEDrine 50 MG/ML SDV IVPUSH PRN (07:14)
[2021-07-04] MEDS ORDERED: diphenhydrAMINE 50 MG/ML SDV IVPUSH PRN (07:14)
[2021-07-04] MEDS ORDERED: fentaNYL 100 MCG/2 ML SDV EPIDUR PRN (07:14)
[2021-07-04] MEDS ORDERED: Bupivacaine/fentaNYL/NS 100 ML Bag EPIDUR PRN (07:14)
[2021-07-04] MEDS ORDERED: fentaNYL 100 MCG/2 ML SDV ONE (07:23)
[2021-07-04] MEDS ORDERED: Carboprost Tromethamine 250 MCG/1 ML Amp ONE (08:24)
[2021-07-04] MEDS ORDERED: Misoprostol 100 MCG Tab ONE (08:26)
[2021-07-04] MEDS ORDERED: Misoprostol 200 MCG Tab PO ONE (09:00)
[2021-07-04] MEDS: Sodium Chloride 0.9% 10 ML Syringe FLUSH SCH (11:18)
== END 2021-07-04 12:28 | disposition home or self-care (01) ==
LOC: JD.OB 14:15 → JD.OBCHECK 14:15 → JD.OB 15:01
PROVIDERS: ADMIT Obstetrics & Gynecology; ATTEND Obstetrics & Gynecology
DX: O36.4XX1 Maternal care for intrauterine death, fetus 1 (principal); Z88.0 Allergy status to penicillin
CPT/HCPCS: 36415; 59855; 85025; 86592; 86850; 86900; 86901; 96374; A9270; G0378; J1170; J3010; J3490; J7120

== ENCOUNTER 2022-12-24 07:02 | Inpatient (IN) | payer BC ==
[~2022-12-24 07:02] MED LIST: Bupivacaine 0.25% 10 ML SDV ONE; Lidocaine 1% 10 ML MDV ONE
[2022-12-24] MEDS ORDERED: Acetaminophen 325 MG Tab PO PRN (07:57)
[2022-12-24] MEDS ORDERED: Lidocaine 1% 50 ML MDV INJECT PRN (07:57)
[2022-12-24] MEDS ORDERED: Sodium Chloride 0.9% 10 ML Syringe FLUSH PRN (07:57)
[2022-12-24] MEDS ORDERED: Nalbuphine 10 MG/0.5 ML Syringe IVPUSH PRN (07:57)
[2022-12-24] MEDS ORDERED: Oxytocin/Lactated Ringers 10 UNIT/1,000 ML BAG IV SCH ×2 (08:00)
[2022-12-24] MEDS ORDERED: ePHEDrine 50 MG/ML SDV IVPUSH PRN (08:02)
[2022-12-24] MEDS ORDERED: diphenhydrAMINE 50 MG/ML SDV IVPUSH PRN (08:02)
[2022-12-24] MEDS ORDERED: Bupivacaine/fentaNYL/NS 100 ML Bag EPIDUR PRN (08:02)
[2022-12-24] MEDS ORDERED: fentaNYL 100 MCG/2 ML SDV EPIDUR PRN (08:02)
[2022-12-24] MEDS: Lactated Ringers 1,000 ML IV SCH ×3 (08:18→14:52)
[2022-12-24 08:25] LABS: BASOPHILS ABSOLUTE AUTO 0.02 K/mm3 (0.01-0.08); BASOPHILS PERCENT AUTO 0.3 % (0.1-1.2); EOSINOPHILS ABSOLUTE AUTO 0.09 K/mm3 (0.04-0.36); EOSINOPHILS PERCENT AUTO 1.5 (0.7-5.8); HEMOGLOBIN 11.7 gm/dl (11.2-15.7); LYMPHOCYTES PERCENT AUTO 27.8 % (19.3-51.7); MEAN CORPUSCULAR HEMOGLOBIN 29.5 pg (25.6-32.2); MEAN CORPUSCULAR HGB CONC 33.4 g/dl (32.2-35.5); MEAN CORPUSCULAR VOLUME 88.2 fl (79.4-94.8); MEAN PLATELET VOLUME 10.3 fl (9.4-12.3); MONOCYTES ABSOLUTE AUTO 0.58 K/mm3 (0.24-0.36); MONOCYTES PERCENT AUTO 9.5 % (4.7-12.5); NEUTROPHILS ABSOLUTE AUTO 3.73 K/mm3 (1.56-6.13); NEUTROPHILS PERCENT AUTO 60.9 % (34.0-71.1); PLATELET COUNT,PLT 249 K/mm3 (182-369); RED BLOOD CELL COUNT 3.97 M/mm3 (3.98-5.22); WHITE BLOOD CELL COUNT,WBC 6.12 K/mm3 (3.98-10.04)
[2022-12-24] MEDS ORDERED: Sodium Chloride 0.9% 10 ML Syringe FLUSH SCH (09:00)
[2022-12-24] MEDS ORDERED: Witch Hazel Medicated Pads 40/Jar TOP PRN (16:37)
[2022-12-24] MEDS ORDERED: Misoprostol 200 MCG Tab PO PRN (16:37)
[2022-12-24] MEDS ORDERED: Benzocaine/Menthol 20%-0.5% Spray 78 GM Cannister TOP PRN (16:37)
[2022-12-24] MEDS ORDERED: Lactated Ringers 1,000 ML IV SCH (16:45)
[2022-12-24] MEDS: Ibuprofen 600 MG Tab PO SCH ×2 (17:37→22:33)
[2022-12-24] MEDS: Docusate Sodium 100 MG Cap PO SCH (20:29)
[2022-12-25] MEDS: Ibuprofen 600 MG Tab PO SCH ×3 (04:25→17:25)
[2022-12-25 05:55] LABS: BASOPHILS ABSOLUTE AUTO 0.02 K/mm3 (0.01-0.08); BASOPHILS PERCENT AUTO 0.2 % (0.1-1.2); EOSINOPHILS PERCENT AUTO 0.9 (0.7-5.8); HEMATOCRIT 33.5 % (34.1-44.9); HEMOGLOBIN 11.2 gm/dl (11.2-15.7); IMMATURE GRAN ABSOLUTE AUTO 0.01 K/mm3 (0.00-0.10); IMMATURE GRAN PERCENT AUTO 0.1 % (<=1.0); LYMPHOCYTES ABSOLUTE AUTO 2.14 K/mm3 (1.18-3.74); LYMPHOCYTES PERCENT AUTO 19.5 % (19.3-51.7); MEAN CORPUSCULAR HEMOGLOBIN 29.7 pg (25.6-32.2); MEAN CORPUSCULAR HGB CONC 33.4 g/dl (32.2-35.5); MEAN CORPUSCULAR VOLUME 88.9 fl (79.4-94.8); MEAN PLATELET VOLUME 10.4 fl (9.4-12.3); MONOCYTES ABSOLUTE AUTO 0.65 K/mm3 (0.24-0.36); MONOCYTES PERCENT AUTO 5.9 % (4.7-12.5); NEUTROPHILS ABSOLUTE AUTO 8.07 K/mm3 (1.56-6.13); NEUTROPHILS PERCENT AUTO 73.4 % (34.0-71.1); PLATELET COUNT,PLT 233 K/mm3 (182-369); RED BLOOD CELL COUNT 3.77 M/mm3 (3.98-5.22); WHITE BLOOD CELL COUNT,WBC 10.99 K/mm3 (3.98-10.04)
[2022-12-25] MEDS ORDERED: Prenatal Multivitamin with Calcium/Folic Acid/Iron Tab PO SCH (09:00)
[2022-12-25] MEDS: Docusate Sodium 100 MG Cap PO SCH (10:04)
== END 2022-12-25 17:00 | disposition home or self-care (01) | DRG 560 ==
LOC: JD.OB 07:02 → OBSVTOIN 16:26 → JD.OB 16:35
PROVIDERS: ADMIT Obstetrics & Gynecology; ATTEND Obstetrics & Gynecology
PROC: 10E0XZZ Delivery of Products of Conception, External Approach (ICD-10-PCS; principal; 2022-12-24)
PROC: 3E033VJ Introduction of Other Hormone into Peripheral Vein, Percutaneous Approach (ICD-10-PCS; 2022-12-24)
PROC: 0U7C7ZZ Dilation of Cervix, Via Natural or Artificial Opening (ICD-10-PCS; 2022-12-24)
PROC: 0HQ9XZZ Repair Perineum Skin, External Approach (ICD-10-PCS; 2022-12-24)
PROC: 3E0R3BZ Introduction of Anesthetic Agent into Spinal Canal, Percutaneous Approach (ICD-10-PCS; 2022-12-24)
PROC: 00HU33Z Insertion of Infusion Device into Spinal Canal, Percutaneous Approach (ICD-10-PCS; 2022-12-24)
DX: O34.219 Maternal care for unspecified type scar from previous cesarean delivery (principal); Z3A.39 39 weeks gestation of pregnancy; O99.02 Anemia complicating childbirth; O70.0 First degree perineal laceration during delivery; O69.81X0 Labor and delivery complicated by cord around neck, without compression, not applicable or unspecified; Z90.89 Acquired absence of other organs; Z98.890 Other specified postprocedural states; Z86.16 Personal history of COVID-19; Z37.0 Single live birth; Z88.0 Allergy status to penicillin
CPT/HCPCS: 36415; 51702; 59025; 59409; 85025; 86592; 86850; 86900; 86901; A9270-GY; C1726; J2590; J3010; J3490; J7120

== ENCOUNTER 2024-08-15 08:01 | Emergency (ER) | payer BC ==
[2024-08-15 08:42] LABS: APPEARANCE,URINE CLEAR (Clear); BILIRUBIN,URINE NEGATIVE (Negative); COLOR,URINE YELLOW (Yellow); GLUCOSE,URINE NEGATIVE (Negative); KETONES,URINE NEGATIVE (Negative); LEUKOCYTE ESTERASE,URINE TRACE (Negative); NITRITE,URINE NEGATIVE (Negative); OCCULT BLOOD,URINE NEGATIVE (Negative); PROTEIN,URINE NEGATIVE (Negative); UROBILINOGEN,URINE 0.2 (0.2-1.0)
[2024-08-15 08:58] LABS: BACTERIA,URINE FEW /hpf (FEW); MUCUS,URINE FEW /hpf (FEW); RBC,URINE 0-5 /hpf (0-5)
== END 2024-08-15 09:17 | disposition home or self-care (01) ==
LOC: JD.ED 08:01
DX: O99.891 Other specified diseases and conditions complicating pregnancy (principal); R33.9 Retention of urine, unspecified; Z3A.15 15 weeks gestation of pregnancy; Z88.0 Allergy status to penicillin; Z79.899 Other long term (current) drug therapy; Z86.16 Personal history of COVID-19
CPT/HCPCS: 81001; 87086; 99284; C1758; 99283

== ENCOUNTER 2025-02-04 07:20 | Inpatient (IN) | payer BC ==
[2025-02-04] MEDS ORDERED: Ondansetron 4 MG/2 ML SDV IVPUSH PRN (07:31)
[2025-02-04] MEDS ORDERED: Nalbuphine 10 MG/1 ML Vial IVPUSH PRN (07:31)
[2025-02-04] MEDS ORDERED: Oxytocin/0.9 % Sodium Chloride 30 UNIT/500 ML BAG IV SCH ×2 (07:45→18:20)
[2025-02-04 08:02] LABS: BASOPHILS ABSOLUTE AUTO 0.0 K/mm3 (0.0-0.2); BASOPHILS PERCENT AUTO 0.6 % (0.0-1.0); EOSINOPHILS ABSOLUTE AUTO 0.2 K/mm3 (0.0-0.4); EOSINOPHILS PERCENT AUTO 3.1 % (0.0-6.0); IMMATURE GRAN ABSOLUTE AUTO 0.01 K/mm3 (0.00-0.05); IMMATURE GRAN PERCENT AUTO 0.1 % (0.0-0.4); LYMPHOCYTES ABSOLUTE AUTO 1.7 K/mm3 (1.0-4.8); LYMPHOCYTES PERCENT AUTO 23.9 % (24.0-44.0); MEAN PLATELET VOLUME 9.8 fl (9.4-12.3); MONOCYTES ABSOLUTE AUTO 0.7 K/mm3 (0.0-0.8); MONOCYTES PERCENT AUTO 9.3 % (0.0-8.0); NEUTROPHILS ABSOLUTE AUTO 4.6 K/mm3 (1.8-7.7); NEUTROPHILS PERCENT AUTO 63.0 % (41.0-71.0); NRBC ABSOLUTE 0.00 (0.00-0.02); NRBC PERCENT 0.0 % (0.0-0.2); PLATELET COUNT,PLT 275 K/mm3 (150-400); RED BLOOD CELL COUNT 3.98 M/mm3 (4.10-5.30); WHITE BLOOD CELL COUNT,WBC 7.21 K/mm3 (3.9-11.3)
[2025-02-04] MEDS: Oxytocin/0.9 % Sodium Chloride 30 UNIT/500 ML BAG IV SCH (08:31)
[2025-02-04] MEDS: Lactated Ringers 1,000 ML IV SCH (08:31)
[2025-02-04] MEDS ORDERED: Magnesium Hydroxide 400 MG/5 ML Susp 30 ML Cup PO PRN (18:20)
[2025-02-04] MEDS: Witch Hazel Medicated Pads 40/Jar TOP PRN (18:27)
[2025-02-04] MEDS: Benzocaine/Menthol 20%-0.5% Spray 78 GM Cannister TOP PRN (18:27)
[2025-02-05] MEDS: Prenatal Multivitamin with Calcium/Folic Acid/Iron Tab PO SCH (08:03)
== END 2025-02-05 18:42 | disposition home or self-care (01) | DRG 560 ==
LOC: JD.OB 07:20 → OBSVTOIN 18:20 → JD.OB 18:21
PROVIDERS: ADMIT Obstetrics & Gynecology; ATTEND Obstetrics & Gynecology
PROC: 10E0XZZ Delivery of Products of Conception, External Approach (ICD-10-PCS; principal; 2025-02-04)
PROC: 4A1HXCZ Monitoring of Products of Conception, Cardiac Rate, External Approach (ICD-10-PCS; 2025-02-04)
PROC: 10907ZC Drainage of Amniotic Fluid, Therapeutic from Products of Conception, Via Natural or Artificial Opening (ICD-10-PCS; 2025-02-04)
PROC: 0U7C7DJ Dilation of Cervix with Intraluminal Device, Temporary, Via Natural or Artificial Opening (ICD-10-PCS; 2025-02-04)
PROC: 3E033VJ Introduction of Other Hormone into Peripheral Vein, Percutaneous Approach (ICD-10-PCS; 2025-02-04)
PROC: 0HQ9XZZ Repair Perineum Skin, External Approach (ICD-10-PCS; 2025-02-04)
DX: O34.211 Maternal care for low transverse scar from previous cesarean delivery (principal); O70.0 First degree perineal laceration during delivery; Z3A.39 39 weeks gestation of pregnancy; Z37.0 Single live birth
CPT/HCPCS: 36415; 59025; 59409; 85025; 86592; 86850; 86900; 86901; A9270-GY; J7120; J7999